=== PATIENT | female | born 1955 | race Caucasian/White ===

== ENCOUNTER → 2024-08-12 | Outpatient (CLI) | payer OTHER, MEDICARE, SELFPAY ==
--- NOTE | 2024-08-12 09:47 | XR_ITS ---
Examination: Abdomen AP single view Technique: AP portable supine abdomen, single view Exam date and time: August 12, 2024 1058 hrs. Indications: Abdominal pain and bloating distention beginning 2 weeks ago. Findings: Moderate air and stool throughout the colon No obstruction No free air Lumbar fusion lower 2 lumbar levels Impression: Moderate air and stool throughout the colon
[2024-08-12 11:03] LABS: Collection Type, Urine Clean Catch
[2024-08-12 11:30] LABS: Basophils # (Auto) 0.1 Thou/mm3 (0.0-0.2); Basophils % (Auto) 1 % (0-2.5); Eosinophils # (Auto) 0.1 Thou/mm3 (0.0-0.5); Eosinophils % (Auto) 1 % (0-10); Immature Granulocytes % (Auto) 0 % (0-0); Immature Granulocytes Auto 0.01 Thou/mm3 (0.00-0.00); Lymphocytes # (Auto) 2.2 Thou/mm3 (1.0-4.8); Lymphocytes % (Auto) 36 % (10-50); Mean Corpuscular HGB Conc 34.1 g/dl (31.0-37.0); Mean Corpuscular Hemoglobin 31.3 pg (25.0-35.0); Mean Corpuscular Volume 92 fL (80-100); Monocytes # (Auto) 0.6 Thou/mm3 (0.0-0.8); Monocytes % (Auto) 10 % (0-12); Neutrophils # (Auto) 3.2 Thou/mm3 (1.8-7.7); Neutrophils % (Auto) 52 % (37-80); Nucleated Red Blood Cell % 0 /100 WBC (0); Platelet Count 303 Thou/mm3 (140-440); Red Blood Count 4.48 Miln/mm3 (4.00-5.20); White Blood Count 6.1 Thou/mm3 (3.6-11.0)
[2024-08-12 11:35] LABS: Bilirubin,Urine Negative (Negative); Blood,Urine Negative (Negative); Clarity,Urine Clear (Clear/Hazy); Color,Urine Lt-Yellow (Lt Yel-Yel); Glucose, Urine Negative (Negative); Ketones,Urine Negative (Negative); Leukocyte Esterase,Urine Negative (Negative); Nitrite,Urine Negative (Negative); PH,Urine 6.5 (5.0-7.0); Protein,Urine Negative (Neg - Trace); RBC,Urine 2 /hpf (0-3); Specific Gravity,Urine 1.014 (1.001-1.035); Squamous Epithelial Cell,Urine < 1 /hpf (0-5); Urobilinogen,Urine Negative mg/dL (0.0-1.0); WBC,Urine < 1 /hpf (0-5)
[2024-08-12 11:51] LABS: Alanine Aminotransferase 16 U/L (10-49); Albumin, Serum 4.9 gm/dL (3.4-4.8); Albumin/Globulin Ratio 2.3 (1.2-2.2); Alkaline Phosphatase 68 U/L (46-116); Amylase 107 U/L (30-118); Anion Gap 4 (7-16); Aspartate Amino Transferase 23 U/L (0-34); BUN/Creatinine Ratio 14 Ratio (12-20); Bilirubin,Total 0.4 mg/dL (0.3-1.2); Blood Urea Nitrogen 11 mg/dL (9-23); Chloride 106 mMol/L (98-107); Creatinine (Component) 0.8 mg/dL (0.6-1.3); Globulin 2.1 gm/dL (2.3-3.5); Glucose 97 mg/dL (74-106); Lipase 107 U/L (12-53); Osmolality,Calculated 273 (275-295); Potassium 4.7 mMol/L (3.4-5.1); Sodium 137 mMol/L (136-145); eGFR > 60 See Note
== END | disposition home or self-care (01) ==
LOC: COPL 09:40
PROVIDERS: PCP Family Medicine; Referring Provider Specialist; Visit Provider Radiology Diagnostic Radiology
DX: K59.00 Constipation, unspecified (principal); R14.0 Abdominal distension (gaseous); R10.32 Left lower quadrant pain; R10.31 Right lower quadrant pain; R10.12 Left upper quadrant pain
CPT/HCPCS: 36415; 74018; 80053; 81001; 82150; 83690; 85025

== ENCOUNTER 2024-08-29 14:03 | Outpatient (RCR) | payer OTHER, MEDICARE, SELFPAY ==
--- NOTE | 2024-08-29 14:00 | XR_ITS ---
Examination: COCO, hepatobiliary radioisotope scan Gallbladder ejection fraction study. Date and time of exam: August 29, 2024 1406 hours INDICATIONS: Abdominal pain in the right upper abdomen constipation 4 days acid reflux heartburn Technique: 5.5 mCi of 99M Hepatolite administered. Serial imaging then obtained from immediate through 60 minutes. 1.0 mcg selective catheter Kinevac administered for gallbladder ejection fraction study. Findings: Radioisotope activity within the liver is reasonably homogenous. Gallbladder, common bile duct small bowel activity noted Impression: Gallbladder activity Normal gallbladder ejection fraction 79%
== END 2024-09-03 23:59 | disposition home or self-care (01) ==
LOC: SNUC 14:03
PROVIDERS: PCP Specialist; Referring Provider Specialist; Visit Provider Specialist
DX: R10.9 Unspecified abdominal pain (principal)
CPT/HCPCS: 78227; A9537; J2805

== ENCOUNTER 2024-09-09 11:49 | Emergency (ER) | payer OTHER, MEDICARE, SELFPAY ==
[2024-09-09 12:14] VITALS: BP 145/90; PULSE 100; RESP 19; TEMP 37; O2SAT 95; BMI 16.5
--- NOTE | 2024-09-09 12:20 | XR_ITS ---
Examination: PA lateral chest 2 views TECHNIQUE: Upright PA lateral chest 2 views Exam date and time: September 09, 2024 1245 hours INDICATIONS: Onset chest pain today. FINDINGS: Normal heart size Significant hyperexpansion No pneumonia or pulmonary edema Moderate osteopenia IMPRESSION: COPD No pneumonia or pulmonary edema
--- NOTE | 2024-09-09 12:20 | PD.EDRME ---
Rapid Medical Screening Exam RME Arrival date/time: 09/09/24 11:49 68-year-old female presents to the emergency department today complaints of abdominal pain and palpitations patient reports that she has been on a bowel regimen and is seeing Dr. Singer patient reports that constipation persist as well as palpitations Chief Complaint: General Adult/Misc Complain Vital signs: Vital Signs Temperature 98.6 F 09/09/24 12:14 Pulse Rate 100 09/09/24 12:14 Respiratory Rate 19 09/09/24 12:14 Blood Pressure 145/90 H 09/09/24 12:14 Pulse Oximetry (%) 95 09/09/24 12:14 Oxygen Delivery Method Room Air 09/09/24 12:14
[2024-09-09 12:57] LABS: Basophils # (Auto) 0.1 Thou/mm3 (0.0-0.2); Basophils % (Auto) 1 % (0-2.5); Eosinophils % (Auto) 1 % (0-10); Hematocrit 41.3 % (36.0-46.0); Hemoglobin 13.9 g/dL (12.0-16.0); Immature Granulocytes % (Auto) 0 % (0-0); Lymphocytes # (Auto) 2.1 Thou/mm3 (1.0-4.8); Lymphocytes % (Auto) 36 % (10-50); Mean Corpuscular HGB Conc 33.7 g/dl (31.0-37.0); Mean Corpuscular Hemoglobin 30.9 pg (25.0-35.0); Mean Corpuscular Volume 92 fL (80-100); Monocytes # (Auto) 0.5 Thou/mm3 (0.0-0.8); Monocytes % (Auto) 8 % (0-12); Neutrophils # (Auto) 3.2 Thou/mm3 (1.8-7.7); Neutrophils % (Auto) 55 % (37-80); Nucleated Red Blood Cell % 0 /100 WBC (0); Platelet Count 261 Thou/mm3 (140-440); RDW Standard Deviation 42.4 fL (36.4-46.3); White Blood Count 5.9 Thou/mm3 (3.6-11.0)
[2024-09-09 13:20] LABS: Alanine Aminotransferase 13 U/L (10-49); Albumin/Globulin Ratio 2.3 (1.2-2.2); Alkaline Phosphatase 67 U/L (46-116); Anion Gap 6 (7-16); Aspartate Amino Transferase 22 U/L (0-34); BUN/Creatinine Ratio 9 Ratio (12-20); Bilirubin,Total 0.5 mg/dL (0.3-1.2); Blood Urea Nitrogen 6 mg/dL (9-23); Calcium 9.9 mg/dL (8.3-10.6); Calcium (Corrected) 9.9 mg/dL (8.5-10.1); Carbon Dioxide 26.6 mMol/L (20.0-31.0); Chloride 104 mMol/L (98-107); Creatinine (Component) 0.7 mg/dL (0.6-1.3); Estimated Creatinine Clearance 50.9 mL/min (>60); Globulin 2.2 gm/dL (2.3-3.5); Glucose 92 mg/dL (74-106); Lipase 78 U/L (12-53); Magnesium 2.1 mg/dL (1.6-2.6); Osmolality,Calculated 271 (275-295); Sodium 137 mMol/L (136-145); Total Protein 7.2 gm/dL (5.7-8.2); Troponin I < 0.002 ng/mL (0.0-0.045); eGFR > 60 See Note
--- NOTE | 2024-09-09 15:11 | PC.NURSE ---
PT LEFT THE ER ROOM AT THIS TIME.
== END 2024-09-09 15:12 | disposition left against medical advice (07) ==
LOC: SERX 12:52
PROVIDERS: Nurse Practitioner Primary Care; Emergency Provider Emergency Medicine; PCP Family Medicine
DX: R10.9 Unspecified abdominal pain (principal); R00.2 Palpitations; Z53.29 Procedure and treatment not carried out because of patient's decision for other reasons
CPT/HCPCS: 36415; 71046; 80053; 80307; 83690; 83735; 83880; 84484; 85025; 93005; 99283

== ENCOUNTER → 2024-09-09 | Outpatient (CLI) | payer OTHER, MEDICARE, SELFPAY ==
--- NOTE | 2024-09-09 10:55 | XR_ITS ---
Examination: Abdomen AP single view Technique: AP portable supine abdomen, single view Exam date and time: September 09, 2024 1118 hours INDICATIONS: Constipation 4 weeks with epigastric pain lower abdominal pain FINDINGS: Moderate stool throughout the colon No obstruction Heavy vascular calcification Transpedicular lumbar fusion lower lumbar spine with laminectomies IMPRESSION: Moderate stool throughout the colon
== END | disposition home or self-care (01) ==
LOC: CDIM 10:32
PROVIDERS: PCP Family Medicine; Referring Provider Specialist; Visit Provider Specialist
DX: K59.00 Constipation, unspecified (principal)
CPT/HCPCS: 74018

== ENCOUNTER → 2024-09-10 | Outpatient (CLI) | payer OTHER, MEDICARE, SELFPAY ==
[2024-09-10 11:46] LABS: Collection Type, Urine Clean Catch
[2024-09-10 12:04] LABS: Basophils % (Auto) 1 % (0-2.5); Eosinophils % (Auto) 0 % (0-10); Hematocrit 40.6 % (36.0-46.0); Immature Granulocytes % (Auto) 0 % (0-0); Immature Granulocytes Auto 0.01 Thou/mm3 (0.00-0.00); Lymphocytes # (Auto) 1.5 Thou/mm3 (1.0-4.8); Lymphocytes % (Auto) 26 % (10-50); Mean Corpuscular HGB Conc 34.5 g/dl (31.0-37.0); Mean Corpuscular Hemoglobin 30.9 pg (25.0-35.0); Mean Corpuscular Volume 90 fL (80-100); Monocytes # (Auto) 0.5 Thou/mm3 (0.0-0.8); Monocytes % (Auto) 9 % (0-12); Neutrophils # (Auto) 3.8 Thou/mm3 (1.8-7.7); Neutrophils % (Auto) 64 % (37-80); Nucleated Red Blood Cell % 0 /100 WBC (0); Platelet Count 280 Thou/mm3 (140-440); RDW Standard Deviation 41.6 fL (36.4-46.3); Red Blood Count 4.53 Miln/mm3 (4.00-5.20); White Blood Count 5.9 Thou/mm3 (3.6-11.0)
[2024-09-10 12:06] LABS: Bilirubin,Urine Negative (Negative); Blood,Urine Negative (Negative); Clarity,Urine Clear (Clear/Hazy); Color,Urine Yellow (Lt Yel-Yel); Glucose, Urine Negative (Negative); Ketones,Urine Negative (Negative); Leukocyte Esterase,Urine Negative (Negative); Nitrite,Urine Negative (Negative); PH,Urine 6.5 (5.0-7.0); Protein,Urine Negative (Neg - Trace); RBC,Urine 2 /hpf (0-3); Specific Gravity,Urine 1.009 (1.001-1.035); Squamous Epithelial Cell,Urine < 1 /hpf (0-5); Urobilinogen,Urine Negative mg/dL (0.0-1.0); WBC,Urine < 1 /hpf (0-5)
[2024-09-10 14:20] LABS: Alanine Aminotransferase 16 U/L (10-49); Albumin, Serum 4.7 gm/dL (3.4-4.8); Alkaline Phosphatase 66 U/L (46-116); Anion Gap 6 (7-16); Aspartate Amino Transferase 31 U/L (0-34); BUN/Creatinine Ratio 11 Ratio (12-20); Bilirubin,Total 0.4 mg/dL (0.3-1.2); Blood Urea Nitrogen 9 mg/dL (9-23); Calcium 10.3 mg/dL (8.3-10.6); Calcium (Corrected) 10.3 mg/dL (8.5-10.1); Carbon Dioxide 26.4 mMol/L (20.0-31.0); Chloride 106 mMol/L (98-107); Creatinine (Component) 0.8 mg/dL (0.6-1.3); Globulin 2.3 gm/dL (2.3-3.5); Glucose 97 mg/dL (74-106); Lipase 77 U/L (12-53); Osmolality,Calculated 274 (275-295); Potassium 4.4 mMol/L (3.4-5.1); Sodium 138 mMol/L (136-145); eGFR > 60 See Note
[2024-09-10 14:33] LABS: Amylase 87 U/L (30-118)
== END | disposition home or self-care (01) ==
LOC: COPL 11:30
PROVIDERS: PCP Family Medicine; Referring Provider Specialist; Visit Provider Specialist
DX: R10.9 Unspecified abdominal pain (principal)
CPT/HCPCS: 36415; 80053; 81001; 82150; 83690; 85025

== ENCOUNTER 2024-09-13 08:38 | Emergency (ER) | payer OTHER, MEDICARE, SELFPAY ==
[2024-09-13 09:06] VITALS: BP 119/78; PULSE 76; RESP 19; TEMP 36.7; O2SAT 100; BMI 16.5
--- NOTE | 2024-09-13 09:24 | XR_ITS ---
Examination: Abdomen AP single view Technique: AP portable supine abdomen, single view Exam date and time: September 13, 2024 1013 hrs. Comparison September 09, 2024 Indications: Constipation beginning one week ago. Findings: Moderately air distended colon No obstruction Abundant stool in the colon is not seen No free air Impression: Moderately air distended colon
--- NOTE | 2024-09-13 09:24 | PD.EDRME ---
Rapid Medical Screening Exam RME Arrival date/time: 09/13/24 08:38 This is a 68-year-old female that per patient is sent by Dr. Singer's office. Patient states that she has had constipation for the last 6 weeks. Patient states that she took milk of magnesium last night and did not help. Patient reports that when she started to try to lay down last night she started feeling like she had palpitations and chest pain. Patient denies nausea vomiting fever. Patient has a history of constipation, anxiety, and reports of recent history with her pancreas. Patient reports history of a in the past and back surgery. Patient is an active smoker I have greeted and performed a focused initial assessment of this patient. Initial appropriate labs ordered at this time. A comprehensive ED assessment and evaluation of the patient and analysis of all test and completion of medical decision making process will be conducted by additional ED provider. Chief Complaint: Abdominal Pain Time Seen by Provider: 09/13/24 09:10 Vital signs: Vital Signs Temperature 98.0 F 09/13/24 09:06 Pulse Rate 76 09/13/24 09:06 Respiratory Rate 19 09/13/24 09:06 Blood Pressure 119/78 09/13/24 09:06 Pulse Oximetry (%) 100 09/13/24 09:06 Oxygen Delivery Method Room Air 09/13/24 09:06
[2024-09-13 10:24] LABS: Basophils # (Auto) 0.1 Thou/mm3 (0.0-0.2); Basophils % (Auto) 1 % (0-2.5); Eosinophils % (Auto) 1 % (0-10); Hematocrit 41.8 % (36.0-46.0); Hemoglobin 14.3 g/dL (12.0-16.0); Immature Granulocytes % (Auto) 0 % (0-0); Immature Granulocytes Auto 0.01 Thou/mm3 (0.00-0.00); Lymphocytes % (Auto) 34 % (10-50); Mean Corpuscular HGB Conc 34.2 g/dl (31.0-37.0); Mean Corpuscular Hemoglobin 31.1 pg (25.0-35.0); Mean Corpuscular Volume 91 fL (80-100); Monocytes # (Auto) 0.6 Thou/mm3 (0.0-0.8); Monocytes % (Auto) 10 % (0-12); Neutrophils # (Auto) 3.1 Thou/mm3 (1.8-7.7); Neutrophils % (Auto) 54 % (37-80); Nucleated Red Blood Cell % 0 /100 WBC (0); Platelet Count 263 Thou/mm3 (140-440); RDW Standard Deviation 41.4 fL (36.4-46.3); White Blood Count 5.7 Thou/mm3 (3.6-11.0)
--- NOTE | 2024-09-13 10:37 | PC.NURSE ---
PT C/O CHEST PAIN WHEN LAYING ON SIDE. PT STATES THAT TOOK BLOOD PRESSURE AND PT NOTICED THAT THE HEART BEAT WERE SPACED APART. PT WAS SENT IN BY DR. GARCÍA. PT STATES THAT DR. GARCÍA SENT HER FOR A CT. PT IS A/O AT THIS TIME. PT C/O PAIN 05/17 TO THE UPPER MIDDLE PORTION OF THE ABD. PT STATES LAST BM WAS 4 DAYS AGO AND HAS BEEN TAKING LAXATIVES. PT AWAITING TO BE SEEN BY .
[2024-09-13 10:41] LABS: B-Type Natriuretic Peptide < 20 pg/mL (0-100)
[2024-09-13 10:44] LABS: Alanine Aminotransferase 17 U/L (10-49); Albumin/Globulin Ratio 2.4 (1.2-2.2); Alkaline Phosphatase 66 U/L (46-116); Anion Gap 5 (7-16); Aspartate Amino Transferase 30 U/L (0-34); BUN/Creatinine Ratio 6 Ratio (12-20); Bilirubin,Total 0.3 mg/dL (0.3-1.2); Blood Urea Nitrogen < 5 mg/dL (9-23); Calcium 9.9 mg/dL (8.3-10.6); Calcium (Corrected) 9.9 mg/dL (8.5-10.1); Carbon Dioxide 27.6 mMol/L (20.0-31.0); Chloride 104 mMol/L (98-107); Creatinine (Component) 0.8 mg/dL (0.6-1.3); Estimated Creatinine Clearance 44.6 mL/min (>60); Globulin 2.1 gm/dL (2.3-3.5); Glucose 103 mg/dL (74-106); Lipase 91 U/L (12-53); Osmolality,Calculated 271 (275-295); Potassium 4.6 mMol/L (3.4-5.1); Sodium 137 mMol/L (136-145); Total Protein 7.1 gm/dL (5.7-8.2); Troponin I < 0.020 ng/mL (0.0-0.045); eGFR > 60 See Note
[2024-09-13 11:00] VITALS: BP 144/78; PULSE 62; RESP 13; TEMP 36.7; O2SAT 97
--- NOTE | 2024-09-13 11:19 | XR_ITS ---
Examination: CT abdomen with intravenous contrast CT pelvis with intravenous contrast 2-D coronal reconstructions 2-D sagittal reconstructions Date and time of exam:September 13, 2024 1219 hrs. Indications: Abdominal pain and constipation beginning 4 weeks ago, history kidney stones Comparison: August 06, 2024. CTDI: vol (mGy) 4.26 DLP: (mGycm) 193 Technique: Multiple axial sections of the abdomen and pelvis have been obtained. 64 slice high-resolution scanner used. 3 mm axial sections have been obtained, post intravenous injection 60 cc [id number] 2-D sagittal, coronal reconstructions obtained. Low dose protocols were performed. One or more of the following dose reduction techniques were used; automated exposure control, adjustment of the mA and/or KV according to patient size, use of iterative reconstruction technique. Findings: Nodule with calcifications left lower lobe again noted Mucosal prominence in the stomach Diffuse fatty infiltration throughout the liver, no biliary tract dilatation Contracted gallbladder Spleen is not enlarged No pancreatic mass No hydronephrosis renal or ureteral calculi Heavy abdominal aortic calcification no aneurysmal dilatation No pericecal inflammatory change No diverticulitis or bowel obstruction Venous channels are prominent about the uterus No pelvic mass Bladder intact Lumbar stabilization L4-L5 Impression: Gastritis pattern No renal or ureteral calculi, no hydronephrosis No CT findings of appendicitis bowel obstruction or diverticulitis Moderate stool in the rectosigmoid
--- NOTE | 2024-09-13 11:20 | PD.EDABDPN ---
ED Abdominal Pain RME/HPI General Chief Complaint: Abdominal Pain Stated complaint: ABD PAIN, CONSTIPATION, CHEST PRESSURE Time seen by provider: 09/13/24 09:10 Arrival date/time: 09/13/24 08:38 RME / HPI RME / HPI narrative: 68-year-old female patient was sent to us by Dr. Singer, for evaluation regarding concern with constipation. According to the patient has been having constipation for the last 6 weeks, was already given GoLytely, with no relief, patient took milk of magnesia last night and did not help. Patient also complained that when she started to lay down, last night, she started feeling like she had a palpitations and chest pain. Patient denies any vomiting but complains of nausea. Patient denies any fever. Patient is currently taking alprazolam, for significant anxiety problem. Denies any other complaints no medications taken prior travel. Related Data Home Medications ?Medication ?Instructions ?Recorded ?Confirmed ibuprofen 800 mg tablet 800 mg PO BID 03/23/23 03/23/23 tizanidine 4 mg tablet 4 mg PO Q6HR PRN Muscle Spasm 03/23/23 03/23/23 Previous Rx's ?Medication ?Instructions ?Recorded amoxicillin 500 mg capsule 500 mg PO BID #20 caps 09/15/23 ondansetron 4 mg disintegrating 4 mg PO Q8H #14 tabs 09/25/23 tablet meclizine 50 mg tablet 50 mg PO BID #14 tabs 01/27/24 pantoprazole 40 mg tablet,delayed 40 mg PO QDAY #30 tabs 09/13/24 release (Protonix) peg 3350-electrolytes 236 240 ml PO Q10M #4,000 mL 09/13/24 gram-22.74 gram-6.74 gram-5.86 gram solution (Golytely) Allergies Allergy/AdvReac Type Severity Reaction Status Date / Time Sulfa (Sulfonamide AdvReac Severe MIGRAINES Verified 09/09/24 11:52 Antibiotics) Review of Systems Review of Systems Narrative Review of Systems: Review of system reviewed and within normal limits except mentioned in HPI ED Exam Narrative Physical exam: VITAL SIGNS: Reviewed. GENERAL APPEARANCE: Alert and interactive, follows commands, no acute distress, anxious HEAD AND FACE: Non-traumatic. ENT: PERRL, pink conjunctivitis, eyelid no trauma, Mucous membrane moist. NECK: Supple, nontender, no nuchal rigidity. CHEST: No tenderness, no crepitus, no paradoxical movement, no retractions. LUNGS: Clear, well ventilated, symmetric, no rales, no wheezing, no ronchi, no stridor, good breath sounds bilaterally. HEART: Regular rate, regular rhythm, no murmur, no gallops. ABDOMEN: Soft, positive bowel sounds, nondistended, no guarding, nontender, no rebound, no masses, RECTAL: Deferred. GENITAL: Deferred. NEUROLOGICAL: Gross motor function intact sensory function intact, Appropriate for age. MUSCULOSKELETAL: low back nontender, full range of motion. EXTREMITIES: Nontender, full range of motion. SKIN: Color pink, dry, no rash, no lacerations, no abrasions, no contusions. LYMPHATICS: Deferred. Course Quality Measures none Orders Category Date Time Status CT Screening NOW Care 09/13/24 11:19 Active EKG (ED ONLY) *Do not use* NOW Care 09/13/24 09:23 Completed Enema Administration ONCE Care 09/13/24 13:[address] abdomen pelvis w con Stat Exams 09/13/24 11:19 Completed EKG (ED Only) Stat Exams 09/13/24 09:22 Ordered KUB [XR abdomen 1V] Stat Exams 09/13/24 09:24 Completed BNP [B-Type Natriuretic Peptide] Stat Lab 09/13/24 10:10 Completed CBC Stat Lab 09/13/24 10:10 Completed Comprehensive Metabolic Panel Stat Lab 09/13/24 10:10 Completed Lipase Stat Lab 09/13/24 10:10 Completed Troponin I Stat Lab 09/13/24 10:10 Completed Magnesium Citrate Liqd [Citrate of Magnesia Liqd] Med 09/13/24 11:19 Discontinued 300 ml PO X1 ONE Vital Signs Vital signs: Vital Signs Temperature 98.0 F 09/13/24 09:06 Pulse Rate 76 09/13/24 09:06 Respiratory Rate 19 09/13/24 09:06 Blood Pressure 119/78 09/13/24 09:06 Pulse Oximetry (%) 100 09/13/24 09:06 Oxygen Delivery Method Room Air 09/13/24 09:06 Abdominal Pain MDM MDM Narrative MDM Narrative:: 68-year-old female patient was sent to us by Dr. Singer, for evaluation regarding concern with constipation. According to the patient has been having constipation for the last 6 weeks, was already given GoLytely, with no relief, patient took milk of magnesia last night and did not help. Patient also complained that when she started to lay down, last night, she started feeling like she had a palpitations and chest pain. Patient denies any vomiting but complains of nausea. Patient denies any fever. Patient is currently taking alprazolam, for significant anxiety problem. Denies any other complaints no medications taken prior travel. Patient EKG showed occasional episodes of bigeminy, cardiac workup all came back normal laboratory workup all came back normal CT scan of the abdomen also came back unremarkable except for constipation. I called Dr. Delgado, patient's pharmaceutical representative, discussed the case, and told me that patient can follow-up in the clinic this coming Sunday. I called Dr. Singer also patient's GI specialist, and told me that patient can be discharged home on GoLytely and follow-up in the clinic this coming Sunday. Patient data External records reviewed:: None Clinical information provided by:: patient Social determinants that could affect healthcare access:: none Patient has the following chronic illnesses:: Anxiety , chronic constipation How is presenting disease/condition affected by chronic disease/condition?: exacerbated by Evaluation data The following diagnostics were reviewed and interpreted by me:: lab results, radiology exam(s) and EKG tracing(s) Lab and/or radiology exams considered but not ordered:: None Interpretation Summary: Laboratory workup all came back unremarkable. CT scan of the abdomen and pelvis showed no acute pathology except for rectosigmoid constipation. Patient EKG showed sinus rhythm, with episodes of bigeminy otherwise unremarkable. Cardiac workup all came back normal. Medications / Prescriptions Medications or Prescriptions considered but not ordered:: None Medication administrations:: Medication Administration History Discontinued Medications Magnesium Citrate (Magnesium Citrate 300 Ml Btl) 300 ml PO X1 ONE Stop: 09/13/24 11:20 Mag citrate and Fleet enema with good relief of symptoms Consultations Consultation(s) initiated? (list below): No Diagnosis Differential diagnosis abdominal pain: abdominal pain, constipation and pancreatitis Most likely diagnosis given after review of the tests above:: Constipation, anxiety, Admission Indicated Admission indicated?: not indicated Admission Request Was there a request for admission?: No Disposition Plan Disposition Plan: Discharge Discharge Attestation Discharge Attestation: The patient was given an opportunity to ask questions and understood the discharge instructions. Discharge instructions specifically effects, indications for sooner follow up or return to the emergency department, and the expected course of current diagnosis. Patient condition: Stable Discharge Plan Plan Patient Disposition: HOME (Self Care) Disposition Comment: stable Prescriptions/Referrals Prescriptions/Med Rec: New peg 3350-electrolytes [Golytely] 236-22.74-6.74 -5.86 gram recon soln 240 ml PO Q10M Qty: 4000 0RF Rx Instructions: until fecal effluent is clear pantoprazole [Protonix] 40 mg tablet,delayed release (DR/EC) 40 mg PO QDAY Qty: 30 0RF No Action amoxicillin 500 mg capsule 500 mg PO BID Qty: 20 0RF meclizine 50 mg tablet 50 mg PO BID Qty: 14 0RF tizanidine 4 mg tablet 4 mg PO Q6HR PRN (Reason: Muscle Spasm) Patient Comments: TAKE ONE TABLET BY MOUTH EVERY EVENING NEEDED FOR MUSCLE SPASMS ibuprofen 800 mg tablet 800 mg PO BID ondansetron 4 mg tablet,disintegrating 4 mg PO Q8H Qty: 14 0RF Referrals: Mark Ty MD [Primary Care Provider] - In 1 week Problem List Clinical Impression: Abdominal pain, Constipation, Anxiety Patient/Caregiver Discharge Instructions Discharge Activity: activity as tolerated Education Materials: ED Constipation (Adult) Additional Instructions: Thank you for the opportunity for serving you today. You are stable for discharged . You are advised to: Follow-up with Dr. Singer, this coming Sunday, please call ahead for appointment, follow-up also with Dr. Delgado, this Sunday, please call ahead for appointment Return to ED for worsening of symptoms Increase oral fluids Take medication as prescribed Print Language: Arabic Stand Alone Forms: Spring Award Info., Patient Portal Info Letter PA/PROGRAM INSTRUCTOR Supervising Physician PA/DWIGHT Supervising Physician: MD Jaylen
[2024-09-13 13:27] VITALS: BP 122/60; PULSE 72; RESP 18; TEMP 36.7; O2SAT 98
== END 2024-09-13 15:00 | disposition home or self-care (01) ==
PROVIDERS: Nurse Practitioner Family; Emergency Provider Emergency Medicine; PCP Family Medicine
DX: K59.00 Constipation, unspecified (principal); F41.9 Anxiety disorder, unspecified
CPT/HCPCS: 36415; 74018; 74177; 80053; 83690; 83880; 84484; 85025; 93005; 99285; A4649; Q9967

== ENCOUNTER 2024-10-05 12:24 | Emergency (ER) | payer OTHER, MEDICARE, SELFPAY ==
[2024-10-05 12:25] VITALS: BMI 16.5
[2024-10-05 13:13] VITALS: BP 134/81; PULSE 109; RESP 18; TEMP 36.6; O2SAT 97
--- NOTE | 2024-10-05 13:34 | EKG_ITS ---
[facility] Test Date: 2024-10-05 Pat Name: JOSE RAUL CHOW Department: Room: - Gender: Female Concrete Paver: : 1955 Requested By: Jaswinder Ching ([facility]) Order Number: [id number] Reading MD: Jaswinder Ching ([facility]) Measurements Intervals [place] Rate: 93 P: 84 DE: 134 QRS: 97 QRSD: 86 T: 23 QT: 338 QTc: 421 Interpretive Statements SINUS RHYTHM POSSIBLE RIGHT ATRIAL ENLARGEMENT [0.25mV P WAVE] POSSIBLE LEFT ATRIAL ENLARGEMENT [-0.1mV P WAVE IN V1/V2] BORDERLINE RIGHT AXIS DEVIATION [QRS AXIS > 90] Compared to ECG 03/16/2024 10:22:25 No significant changes /[id number]/[email or web address]/[id number].pdf
--- NOTE | 2024-10-05 13:34 | PD.EDRME ---
Rapid Medical Screening Exam RME Arrival date/time: 10/05/24 12:24 69-year-old female presents emergency department complaining of irregular heart rate and lower abdominal pain. Chief Complaint: Arrhythmia/Palpitations Time Seen by Provider: 10/05/24 13:05 Vital signs: Vital Signs Temperature 97.9 F 10/05/24 13:13 Pulse Rate 109 H 10/05/24 13:13 Respiratory Rate 18 10/05/24 13:13 Blood Pressure 134/81 H 10/05/24 13:13 Pulse Oximetry (%) 97 10/05/24 13:13 Oxygen Delivery Method Room Air 10/05/24 13:13 Vital signs reviewed by provider: Yes
--- NOTE | 2024-10-05 13:45 | XR_ITS ---
Examination: Abdomen AP single view Technique: AP portable supine abdomen, single view Exam date and time: October 05, 2024 1348 hrs. Indications: Intermittent constipation one month. Findings: Mild to moderate air and stool throughout the colon No obstruction No free air Heavy vascular calcification Transpedicular lower lumbar fusion Impression: Mild to moderate air and stool throughout the colon, no obstruction
[2024-10-05 14:09] LABS: Collection Type, Urine Clean Catch; Squamous Epithelial Cell,Urine 0 /hpf (0-5)
[2024-10-05 14:13] LABS: Basophils # (Auto) 0.1 Thou/mm3 (0.0-0.2); Basophils % (Auto) 1 % (0-2.5); Eosinophils # (Auto) 0.1 Thou/mm3 (0.0-0.5); Eosinophils % (Auto) 1 % (0-10); Hemoglobin 14.4 g/dL (12.0-16.0); Immature Granulocytes % (Auto) 0 % (0-0); Immature Granulocytes Auto 0.02 Thou/mm3 (0.00-0.00); Lymphocytes # (Auto) 2.5 Thou/mm3 (1.0-4.8); Lymphocytes % (Auto) 34 % (10-50); Mean Corpuscular HGB Conc 35.1 g/dl (31.0-37.0); Mean Corpuscular Hemoglobin 31.4 pg (25.0-35.0); Mean Corpuscular Volume 90 fL (80-100); Monocytes # (Auto) 0.6 Thou/mm3 (0.0-0.8); Monocytes % (Auto) 9 % (0-12); Neutrophils % (Auto) 55 % (37-80); Nucleated Red Blood Cell % 0 /100 WBC (0); Platelet Count 272 Thou/mm3 (140-440); RDW Standard Deviation 41.7 fL (36.4-46.3); Red Blood Count 4.58 Miln/mm3 (4.00-5.20); White Blood Count 7.2 Thou/mm3 (3.6-11.0)
[2024-10-05 14:19] LABS: Bilirubin,Urine Negative (Negative); Blood,Urine Negative (Negative); Clarity,Urine Clear (Clear/Hazy); Color,Urine Colorless (Lt Yel-Yel); Culture Indicated,Urine Not Indicated; Glucose, Urine Negative (Negative); Ketones,Urine Negative (Negative); Leukocyte Esterase,Urine Negative (Negative); Nitrite,Urine Negative (Negative); PH,Urine 6.5 (5.0-7.0); Protein,Urine Negative (Neg - Trace); RBC,Urine 1 /hpf (0-3); Specific Gravity,Urine 1.006 (1.001-1.035); Urobilinogen,Urine Negative mg/dL (0.0-1.0); WBC,Urine 1 /hpf (0-5)
[2024-10-05 14:28] LABS: Amphetamine/Methamp Scrn,U Negative (Negative); Barbiturate Screen,Urine Negative (Negative); Benzodiazepines Screen,Urine Negative (Negative); Benzoylecgonine Screen, Ur Negative (Negative); Fentanyl Screen,Urine Negative (Negative); Opiate Screen,Urine Positive (Negative); THC Screen,Urine Negative (Negative)
[2024-10-05 14:37] LABS: Alanine Aminotransferase 18 U/L (10-49); Albumin, Serum 5.2 gm/dL (3.4-4.8); Albumin/Globulin Ratio 2.3 (1.2-2.2); Alkaline Phosphatase 68 U/L (46-116); Anion Gap 6 (7-16); Aspartate Amino Transferase 22 U/L (0-34); BUN/Creatinine Ratio 10 Ratio (12-20); Bilirubin,Total 0.5 mg/dL (0.3-1.2); Blood Urea Nitrogen 8 mg/dL (9-23); Calcium 10.2 mg/dL (8.3-10.6); Calcium (Corrected) 10.2 mg/dL (8.5-10.1); Carbon Dioxide 25.7 mMol/L (20.0-31.0); Chloride 107 mMol/L (98-107); Creatinine (Component) 0.8 mg/dL (0.6-1.3); Estimated Creatinine Clearance 43.5 mL/min (>60); Globulin 2.3 gm/dL (2.3-3.5); Glucose 95 mg/dL (74-106); Lipase 79 U/L (12-53); Osmolality,Calculated 275 (275-295); Potassium 4.2 mMol/L (3.4-5.1); Sodium 139 mMol/L (136-145); Total Protein 7.5 gm/dL (5.7-8.2); eGFR > 60 See Note
--- NOTE | 2024-10-05 15:31 | PD.EDADULT ---
ED General RME/HPI General Chief complaint: Arrhythmia/Palpitations Stated complaint: IRREGULAR HEART WITH LOWER ABD PAIN Time Seen by Provider: 10/05/24 13:05 Arrival date/time: 10/05/24 12:24 CC: Abdominal pain constipation, pain in the low center abdomen, pain is in through my uterus and pushing about my bladder denies nausea vomiting is very anxious. Has seen Dr. Singer for the same complaint 3 times multiple times in the emergency room for the same complaint. RME / HPI RME / HPI narrative: 10/05/24 12:24 69-year-old female presents emergency department complaining of irregular heart rate and lower abdominal pain. Related Data Home Medications ?Medication ?Instructions ?Recorded ?Confirmed ibuprofen 800 mg tablet 800 mg PO BID 03/23/23 03/23/23 tizanidine 4 mg tablet 4 mg PO Q6HR PRN Muscle Spasm 03/23/23 03/23/23 Previous Rx's ?Medication ?Instructions ?Recorded amoxicillin 500 mg capsule 500 mg PO BID #20 caps 09/15/23 ondansetron 4 mg disintegrating 4 mg PO Q8H #14 tabs 09/25/23 tablet meclizine 50 mg tablet 50 mg PO BID #14 tabs 01/27/24 pantoprazole 40 mg tablet,delayed 40 mg PO QDAY #30 tabs 09/13/24 release (Protonix) peg 3350-electrolytes 236 240 ml PO Q10M #4,000 mL 09/13/24 gram-22.74 gram-6.74 gram-5.86 gram solution (Golytely) Allergies Allergy/AdvReac Type Severity Reaction Status Date / Time Sulfa (Sulfonamide AdvReac Severe MIGRAINES Verified 10/05/24 12:26 Antibiotics) Review of Systems Review of Systems Narrative Review of Systems: GEN: No fever, no chills, no weight loss EYES: No discharge, no visual changes, no pain HEENT: No ear pain, no congestion, no sore throat PULM: No shortness of breath, no cough, no congestion CV: No chest pain, no dyspnea on exertion, no palpitations GI: No nausea, no vomiting, no diarrhea, + pain, no constipation : No frequency, no urgency, no dysuria MUSC/SKEL: No joint pain, no back pain SKIN: No rash PSYCH: No hallucinations, no depression HEME/LYMPH: No easy bleeding or bruising tendencies NEURO: No weakness, no headache Past Medical History Past Medical History NEUROLOGIC: Positive Neurological Disorders and Migraine; Negative Seizures CARDIAC: Positive Hypercholesterolemia; Negative Cardiac Disorders or Congestive Heart Failure RESPIRATORY: Negative Chronic Obstructive Pulmonary Disease (COPD) or Asthma GASTROINTESTINAL: Positive Gastrointestinal Disorders, Hepatitis and Gastroesophageal Reflux Disease GENITOURINARY: Positive Genitourinary Disorders; Negative Renal Disease REPRODUCTIVE: Negative Pelvic Inflammatory Disease MUSCULOSKELETAL: Positive Musculoskeletal Disorders and Osteoporosis ENDOCRINE: Negative Endocrine Disorders, Diabetes Mellitus Type 1 or Diabetes Mellitus Type 2 HEMATOLOGIC: Negative Blood Disorders, Anemia or Sickle Cell Disease PSYCHO/SOCIAL: Positive Depression and Anxiety OTHER HISTORY: Positive Chicken Pox; Negative Falls, Blood Transfusions, Anesthesia Reactions, Measles, Mumps or Cancer Family History FAMILY HISTORY: Negative Family Cardiac Disorders Surgical History SURGICAL: Positive Thyroidectomy (PARTIAL) and Tonsillectomy; Negative Cardiac Surgery or Abdominal Surgery Social History SMOKING STATUS: Current every day smoker SUBSTANCE USE: does not use ED Exam Narrative Physical exam: [General: Thin but not emaciated, anxious, but not in any acute distress Head normocephalic HEENT: Within acceptable limits Neck is supple nontender Chest equal chest rise nontender to palpation Respiratory: Clear to auscultation no wheezes crackles or rubs CV: Rate rhythm is regular no murmurs rubs or clicks Abdomen is flat, firm, soft nontender no masses positive bowel sounds all 4 quadrants Back: No CVA tenderness no spinous process tenderness from cervical spine thoracic and lumbar spine Skin: Intact no petechiae rash induration ulceration or crepitus Extremities: Moving all extremity against resistance cap refill less than 2 seconds neurosensory intact Neuro: Awake alert oriented x3 Glascow coma 15 no focal deficits] Course Quality Measures none Orders Category Date Time Status EKG (ED ONLY) *Do not use* NOW Care 10/05/24 13:34 Completed EKG (ED Only) Stat Exams 10/05/24 13:34 Draft XR abdomen 1V Stat Exams 10/05/24 13:45 Completed CBC Stat Lab 10/05/24 14:00 Completed CMP [Comprehensive Metabolic Panel] Stat Lab 10/05/24 14:00 Completed Drug Screen,Urine Stat Lab 10/05/24 13:53 Completed Lipase Stat Lab 10/05/24 14:00 Completed Urinalysis, C/S if Indicated Stat Lab 10/05/24 13:53 Completed Ketorolac Inj [Toradol Inj] Med 10/05/24 13:34 Discontinued 30 mg IM X1 ONE Vital Signs Vital signs: Vital Signs Temperature 97.9 F 10/05/24 13:13 Pulse Rate 109 H 10/05/24 13:13 Respiratory Rate 18 10/05/24 13:13 Blood Pressure 134/81 H 10/05/24 13:13 Pulse Oximetry (%) 97 10/05/24 13:13 Oxygen Delivery Method Room Air 10/05/24 13:13 [facility] Patient data External records reviewed:: [facility] previous records Clinical information provided by:: patient Social determinants that could affect healthcare access:: none Patient has the following chronic illnesses:: Anxiety How is presenting disease/condition affected by chronic disease/condition?: exacerbated by Evaluation data The following diagnostics were reviewed and interpreted by me:: lab results and radiology exam(s) Lab and/or radiology exams considered but not ordered:: CBC shows no acute leukocytosis anemia thrombocytopenia CMP shows no acute electrolyte imbalances renal impairment transaminitis or T. bili elevation Urine is negative X-ray of the abdomen shows normal gas bowel pattern Interpretation Summary: Patient has no acute findings with stable vital signs at this time and comfortable discharging the patient home she can consider [facility] as a prescription from her PCP as she still has residual opioid in her system from her spine surgery. However I suspect the majority of her symptoms are anxiety driven. Medications Medications considered but not ordered:: None Medication administrations:: Medication Administration History Discontinued Medications Ketorolac Tromethamine (Ketorolac Inj 60 Mg/2 Ml Vial) 30 mg IM X1 ONE Stop: 10/05/24 13:35 Last Admin: 10/05/24 14:16 Dose: Not Given Documented By: JARRETT Non-Admin Reason: Patient Refused None Consultations Consultation(s) initiated? (list below): No Diagnosis Differential Diagnosis ED Complaint MDM: Anxiety constipation obstipation Most likely diagnosis given after review of the tests above:: Anxiety constipation Admission Indicated Admission indicated?: not indicated Explain why admission is indicated or not indicated:: Stable for outpatient follow-up Admission Request Was there a request for admission?: No Disposition Plan Disposition Plan: Discharge Discharge Attestation Discharge Attestation: The patient and all family members were given an opportunity to ask questions and understood the discharge instructions. Discharge instructions specifically effects, indications for sooner follow up or return to the emergency department, and the expected course of current diagnosis. Patient condition: Stable Medical Decision Making Differential Diagnosis Differential Diagnosis: Anxiety constipation obstipation Lab Data 10/05/24 14:00 10/05/24 14:00 Labs: Lab Results 10/05/24 10/05/24 Range/Units 13:53 14:00 WBC 7.2 (3.6-11.0) Thou/mm3 RBC 4.58 (4.00-5.20) Miln/mm3 Hgb 14.4 (12.0-16.0) g/dL Hct 41.0 (36.0-46.0) % MCV 90 (80-100) fL MCH 31.4 (25.0-35.0) pg MCHC 35.1 (31.0-37.0) g/dl RDW Std Deviation 41.7 (36.4-46.3) fL Plt Count 272 (140-440) Thou/mm3 Neut % (Auto) 55 (37-80) % Lymph % (Auto) 34 (10-50) % [place] % (Auto) 9 (0-12) % Eos % (Auto) 1 (0-10) % Baso % (Auto) 1 (0-2.5) % Neut # (Auto) 4.0 (1.8-7.7) Thou/mm3 Lymph # (Auto) 2.5 (1.0-4.8) Thou/mm3 [place] # (Auto) 0.6 (0.0-0.8) Thou/mm3 Eos # (Auto) 0.1 (0.0-0.5) Thou/mm3 Baso # (Auto) 0.1 (0.0-0.2) Thou/mm3 Immature Gran # (Auto) 0.02 H (0.00-0.00) Thou/mm3 Absolute Nucleated RBC 0.00 (0.00-0.00) Thou/mm3 Immature Gran % 0 (0-0) % Nucleated RBC % 0 (0) /100 WBC Sodium 139 (136-145) mMol/L Potassium 4.2 (3.4-5.1) mMol/L Chloride 107 (98-107) mMol/L Carbon Dioxide 25.7 (20.0-31.0) mMol/L Anion Gap 6 L (7-16) BUN 8 L (9-23) mg/dL Creatinine 0.8 (0.6-1.3) mg/dL Estim Creat Clear Calc 43.5 L (>60) mL/min eGFR > 60 (60 - ) See Note BUN/Creatinine Ratio 10 L (12-20) Ratio Glucose 95 (74-106) mg/dL Calculated Osmolality 275 (275-295) Calcium 10.2 (8.3-10.6) mg/dL Corrected Calcium 10.2 H (8.5-10.1) mg/dL Total Bilirubin 0.5 (0.3-1.2) mg/dL AST 22 (0-34) U/L ALT 18 (10-49) U/L Alkaline Phosphatase 68 (46-116) U/L Total Protein 7.5 (5.7-8.2) gm/dL Albumin 5.2 H (3.4-4.8) gm/dL Globulin 2.3 (2.3-3.5) gm/dL Albumin/Globulin Ratio 2.3 H (1.2-2.2) Lipase 79 H (12-53) U/L Ur Collection Type Clean Catch Urine Color Colorless A (Lt Yel-Yel) Urine Clarity Clear (Clear/Hazy) Urine pH 6.5 (5.0-7.0) Ur Specific [place] 1.006 (1.001-1.035) Urine Protein Negative (Neg - Trace) Urine Glucose (UA) Negative (Negative) Urine Ketones Negative (Negative) Urine Blood Negative (Negative) Urine Nitrite Negative (Negative) Urine Bilirubin Negative (Negative) Urine Urobilinogen (Auto) Negative (0.0-1.0) mg/dL Ur Leukocyte Esterase Negative (Negative) Urine RBC 1 (0-3) /hpf Urine WBC 1 (0-5) /hpf Ur Squamous Epith Cells 0 (0-5) /hpf Urine Bacteria None (None) Ur Culture Indicated? Not Indicated Urine Opiates Screen Positive A (Negative) Urine Fentanyl Screen Negative (Negative) Ur Barbiturates Screen Negative (Negative) U Amphetamin/Meth Scrn Negative (Negative) U Benzodiazepines Scrn Negative (Negative) U Cocaine Metab Screen Negative (Negative) U Marijuana (THC) Screen Negative (Negative) Discharge Plan Plan Patient Disposition: HOME (Self Care) Patient condition on transfer: Stable Prescriptions/Referrals Prescriptions/Med Rec: No Action amoxicillin 500 mg capsule 500 mg PO BID Qty: 20 0RF meclizine 50 mg tablet 50 mg PO BID Qty: 14 0RF tizanidine 4 mg tablet 4 mg PO Q6HR PRN (Reason: Muscle Spasm) Patient Comments: TAKE ONE TABLET BY MOUTH EVERY EVENING NEEDED FOR MUSCLE SPASMS ibuprofen 800 mg tablet 800 mg PO BID ondansetron 4 mg tablet,disintegrating 4 mg PO Q8H Qty: 14 0RF peg 3350-electrolytes [Golytely] 236-22.74-6.74 -5.86 gram recon soln 240 ml PO Q10M Qty: 4000 0RF Rx Instructions: until fecal effluent is clear pantoprazole [Protonix] 40 mg tablet,delayed release (DR/EC) 40 mg PO QDAY Qty: 30 0RF Referrals: Mark Ty MD [Primary Care Provider] - In 1 week Problem List Clinical Impression: Constipation Patient/Caregiver Discharge Instructions Education Materials: ED Constipation (Adult) Additional Instructions: Consider continue on the [facility] follow-up with Dr. Singer if there is a worsening of symptoms follow-up with your primary care provider. Print Language: Upper Sorbian Stand Alone Forms: Spring Award Info., Patient Portal Info Letter, Work/School Release PA/SENIOR CONTROLS ANALYST Supervising Physician PA/SENIOR CONTROLS ANALYST Supervising Physician: Sukhjinder Cross ENP
== END 2024-10-05 16:02 | disposition home or self-care (01) ==
PROVIDERS: Emergency Provider Emergency Medicine; PCP Family Medicine
DX: K59.00 Constipation, unspecified (principal); R94.31 Abnormal electrocardiogram [ECG] [EKG]; E78.00 Pure hypercholesterolemia, unspecified
CPT/HCPCS: 36415; 74018; 80053; 80307; 81001; 83690; 85025; 93005; 99283

== ENCOUNTER → 2024-11-10 | Outpatient (CLI) | payer OTHER, MEDICARE, SELFPAY ==
[2024-11-10 10:30] LABS: Basophils # (Auto) 0.1 Thou/mm3 (0.0-0.2); Basophils % (Auto) 1 % (0-2.5); Eosinophils # (Auto) 0.1 Thou/mm3 (0.0-0.5); Eosinophils % (Auto) 1 % (0-10); Hematocrit 40.7 % (36.0-46.0); Hemoglobin 13.9 g/dL (12.0-16.0); Immature Granulocytes % (Auto) 0 % (0-0); Lymphocytes % (Auto) 38 % (10-50); Mean Corpuscular HGB Conc 34.2 g/dl (31.0-37.0); Mean Corpuscular Hemoglobin 30.7 pg (25.0-35.0); Mean Corpuscular Volume 90 fL (80-100); Monocytes # (Auto) 0.6 Thou/mm3 (0.0-0.8); Monocytes % (Auto) 12 % (0-12); Neutrophils # (Auto) 2.5 Thou/mm3 (1.8-7.7); Neutrophils % (Auto) 49 % (37-80); Nucleated Red Blood Cell % 0 /100 WBC (0); Platelet Count 275 Thou/mm3 (140-440); RDW Standard Deviation 43.1 fL (36.4-46.3); Red Blood Count 4.53 Miln/mm3 (4.00-5.20); White Blood Count 5.2 Thou/mm3 (3.6-11.0)
[2024-11-10 10:36] LABS: Partial Thromboplastin Time 25.7 Seconds (22.0-36.0)
[2024-11-10 10:47] LABS: Anion Gap 5 (7-16); BUN/Creatinine Ratio 13 Ratio (12-20); Blood Urea Nitrogen 9 mg/dL (9-23); Calcium 9.9 mg/dL (8.3-10.6); Carbon Dioxide 27.7 mMol/L (20.0-31.0); Chloride 108 mMol/L (98-107); Creatinine (Component) 0.7 mg/dL (0.6-1.3); Glucose 96 mg/dL (74-106); Osmolality,Calculated 279 (275-295); Potassium 4.5 mMol/L (3.4-5.1); Sodium 141 mMol/L (136-145); eGFR > 60 See Note
== END | disposition home or self-care (01) ==
LOC: COPL 09:09
PROVIDERS: PCP Family Medicine; Referring Provider Internal Medicine; Visit Provider Internal Medicine
DX: I25.10 Atherosclerotic heart disease of native coronary artery without angina pectoris (principal); I48.91 Unspecified atrial fibrillation
CPT/HCPCS: 36415; 80048; 85025; 85610; 85730

== ENCOUNTER → 2025-01-14 | Outpatient (CLI) | payer OTHER, MEDICARE, SELFPAY ==
[2025-01-14 10:33] LABS: Collection Type, Urine Clean Catch
[2025-01-14 11:49] LABS: Bilirubin,Urine Negative (Negative); Blood,Urine Negative (Negative); Clarity,Urine Clear (Clear/Hazy); Color,Urine Yellow (Lt Yel-Yel); Culture Indicated,Urine Not Indicated; Glucose, Urine Negative (Negative); Ketones,Urine Negative (Negative); Leukocyte Esterase,Urine Negative (Negative); Nitrite,Urine Negative (Negative); PH,Urine 6.5 (5.0-7.0); Protein,Urine Negative (Neg - Trace); RBC,Urine 2 /hpf (0-3); Squamous Epithelial Cell,Urine < 1 /hpf (0-5); WBC,Urine 1 /hpf (0-5)
== END | disposition home or self-care (01) ==
LOC: COPL 10:30 → SLDO 10:31
PROVIDERS: PCP Family Medicine; Referring Provider Family Medicine; Visit Provider Family Medicine
DX: L29.2 Pruritus vulvae (principal)
CPT/HCPCS: 81001

== ENCOUNTER 2025-02-11 18:32 | Emergency (ER) | payer OTHER, MEDICARE, SELFPAY ==
[2025-02-11 18:33] VITALS: BMI 17.4
--- NOTE | 2025-02-11 19:30 | PC.NURSE ---
Pt did not answer when name was called in the lobby and was not found outside.
--- NOTE | 2025-02-11 19:58 | PC.NURSE ---
Pt did not answer when name was called and was not found outside.
== END 2025-02-11 19:58 | disposition left against medical advice (07) ==
LOC: SERX 20:03
PROVIDERS: Emergency Provider Emergency Medicine
DX: Z53.21 Procedure and treatment not carried out due to patient leaving prior to being seen by health care provider (principal)

== ENCOUNTER 2025-02-16 11:25 | Day surgery (SDC) | payer OTHER, MEDICARE, SELFPAY ==
[2025-02-13 12:55] VITALS: BMI 17.4
[2025-02-13 13:35] LABS: Partial Thromboplastin Time 26.2 Seconds (22.0-36.0); Prothrombin Time 11.2 Seconds (9.0-12.2)
[2025-02-13 13:42] LABS: Alanine Aminotransferase 17 U/L (10-49); Albumin, Serum 4.8 gm/dL (3.4-4.8); Alkaline Phosphatase 69 U/L (46-116); Anion Gap 5 (7-16); Aspartate Amino Transferase 29 U/L (0-34); BUN/Creatinine Ratio 13 Ratio (12-20); Bilirubin,Total 0.5 mg/dL (0.3-1.2); Blood Urea Nitrogen 10 mg/dL (9-23); Calcium 9.5 mg/dL (8.3-10.6); Calcium (Corrected) 9.5 mg/dL (8.5-10.1); Carbon Dioxide 27.6 mMol/L (20.0-31.0); Chloride 107 mMol/L (98-107); Creatinine (Component) 0.8 mg/dL (0.6-1.3); Estimated Creatinine Clearance 46.4 mL/min (>60); Globulin 2.4 gm/dL (2.3-3.5); Glucose 113 mg/dL (74-106); Osmolality,Calculated 279 (275-295); Potassium 4.1 mMol/L (3.4-5.1); Sodium 140 mMol/L (136-145); Total Protein 7.2 gm/dL (5.7-8.2); eGFR > 60 See Note
[2025-02-13 13:46] LABS: Basophils # (Auto) 0.1 Thou/mm3 (0.0-0.2); Basophils % (Auto) 1 % (0-2.5); Eosinophils # (Auto) 0.1 Thou/mm3 (0.0-0.5); Eosinophils % (Auto) 1 % (0-10); Hematocrit 40.6 % (36.0-46.0); Hemoglobin 14.2 g/dL (12.0-16.0); Immature Granulocytes % (Auto) 0 % (0-0); Immature Granulocytes Auto 0.02 Thou/mm3 (0.00-0.00); Lymphocytes # (Auto) 2.1 Thou/mm3 (1.0-4.8); Lymphocytes % (Auto) 35 % (10-50); Mean Corpuscular Hemoglobin 31.1 pg (25.0-35.0); Mean Corpuscular Volume 89 fL (80-100); Monocytes # (Auto) 0.6 Thou/mm3 (0.0-0.8); Monocytes % (Auto) 10 % (0-12); Neutrophils # (Auto) 3.1 Thou/mm3 (1.8-7.7); Neutrophils % (Auto) 53 % (37-80); Nucleated Red Blood Cell % 0 /100 WBC (0); Platelet Count 267 Thou/mm3 (140-440); RDW Standard Deviation 42.5 fL (36.4-46.3); Red Blood Count 4.56 Miln/mm3 (4.00-5.20); White Blood Count 5.9 Thou/mm3 (3.6-11.0)
[2025-02-16] VITALS (7 sets, daily range): BP systolic 105–133; BP diastolic 51–89; PULSE 62–79; RESP 16–20; TEMP 36.4–37.2; O2SAT 95–98; BMI 16.2
[2025-02-16] MEDS: RINGERS LACTATED 1000 ML 1,000 ML 100 ML IV (14:55)
--- NOTE | 2025-02-16 15:42 | SUR.PHASEII ---
pt received from OR in recovery bay 2. pt asleep but responds to voice, breathing unlabored on room air. v/s stable. report received from Jodi Guido.
--- NOTE | 2025-02-16 16:18 | SUR.PHASEII ---
pt awake and alert, breathing unlabored on room air. v/s stable. pt able to ambulate to wheelchair with steady gait. d/c instructions given with Krunal in room, all questions answered. pt d/c via wheelchair with all belongings.
== END 2025-02-16 16:18 | disposition home or self-care (01) ==
PROVIDERS: PCP Family Medicine; Referring Provider Surgery; Visit Provider Surgery
PROC: 0DJD8ZZ Inspection of Lower Intestinal Tract, Via Natural or Artificial Opening Endoscopic (ICD-10-PCS; CPT 45378; principal; 2025-02-16 13:00)
DX: Z12.11 Encounter for screening for malignant neoplasm of colon (principal); D12.5 Benign neoplasm of sigmoid colon; K63.5 Polyp of colon; Z86.0100 Personal history of colon polyps, unspecified; F17.210 Nicotine dependence, cigarettes, uncomplicated; Z90.710 Acquired absence of both cervix and uterus; Z90.49 Acquired absence of other specified parts of digestive tract
CPT/HCPCS: 45380; 36415; 80053; 85025; 85610; 85730; A4649; J7120

== ENCOUNTER → 2025-05-25 | Outpatient (CLI) | payer OTHER, MEDICARE, SELFPAY ==
[2025-05-25 15:13] LABS: Collection Type, Urine Clean Catch; Squamous Epithelial Cell,Urine 0 /hpf (0-5); WBC,Urine 0 /hpf (0-5)
[2025-05-25 16:12] LABS: Bilirubin,Urine Negative (Negative); Blood,Urine Negative (Negative); Clarity,Urine Clear (Clear/Hazy); Color,Urine Colorless (Lt Yel-Yel); Glucose, Urine Negative (Negative); Ketones,Urine Negative (Negative); Leukocyte Esterase,Urine Negative (Negative); Nitrite,Urine Negative (Negative); PH,Urine 7.0 (5.0-7.0); Protein,Urine Negative (Neg - Trace); RBC,Urine < 1 /hpf (0-3); Specific Gravity,Urine 1.004 (1.001-1.035); Urobilinogen,Urine Negative mg/dL (0.0-1.0)
== END | disposition home or self-care (01) ==
LOC: SLDO 15:06
PROVIDERS: PCP Family Medicine; Referring Provider Family Medicine; Visit Provider Family Medicine
DX: N30.00 Acute cystitis without hematuria (principal)
CPT/HCPCS: 81001; 87086

== ENCOUNTER 2025-06-21 16:28 | Emergency (ER) | payer OTHER, MEDICARE, SELFPAY ==
[2025-06-21 16:32] VITALS: BP 109/72; PULSE 116; RESP 18; O2SAT 99
--- NOTE | 2025-06-21 16:33 | EKG_ITS ---
[facility] Test Date: 2025-06-21 Pat Name: JOSE RAUL CHOW Department: Room: - Gender: Female Receiving Team Member: : [id number] Requested By: ED Temporary Provider Order Number: [id number] Reading MD: ED Temporary Provider Measurements Intervals [place] Rate: 80 P: 80 IN: 154 QRS: 85 QRSD: 81 T: 71 QT: 375 QTc: 435 Interpretive Statements SINUS RHYTHM WITH FREQUENT VENTRICULAR PREMATURE COMPLEXES ABNORMAL RHYTHM ECG Compared to ECG 10/05/2024 13:48:54 Ventricular premature complex(es) now present /store/S0/[id number]/ecg/[id number].pdf
--- NOTE | 2025-06-21 17:58 | PD.EDRME ---
Rapid Medical Screening Exam RME Arrival date/time: 06/21/25 16:28 Chief Complaint: Arrhythmia/Palpitations Time Seen by Provider: 06/21/25 17:58 Vital signs: Vital Signs Pulse Rate 116 H 06/21/25 16:32 Respiratory Rate 18 06/21/25 16:32 Blood Pressure 109/72 06/21/25 16:32 Pulse Oximetry (%) 99 06/21/25 16:32 Oxygen Delivery Method Room Air 06/21/25 16:32 RME Narrative: 69-year-old female with a past medical history of pancreatitis, calcified aorta presents to the ER complaining of palpitations, epigastric pain which have been nonexertional in nature associated with nausea, shortness of breath, dizziness x 3 days. Denies vomiting. Patient notes she is constipated.
--- NOTE | 2025-06-21 18:00 | XR_ITS ---
Examination: PA chest single view Technique: Upright PA chest single view Date and time: June 21, 2025 1836 hrs., Comparison September 09, 2024 Indications: Epigastric pain today. Findings: COPD with prominent hyperexpansion Normal heart size Prominent central pulmonary arteries. No lobar pneumonia Calcified granuloma in the left lower lobe Reverse right shoulder arthroplasty Impression: COPD with prominent hyperexpansion Pulmonary artery hypertension pattern
[2025-06-21 18:46] LABS: Basophils # (Auto) 0.1 Thou/mm3 (0.0-0.2); Basophils % (Auto) 1 % (0-2.5); Eosinophils # (Auto) 0.1 Thou/mm3 (0.0-0.5); Eosinophils % (Auto) 1 % (0-10); Hematocrit 39.4 % (36.0-46.0); Hemoglobin 13.7 g/dL (12.0-16.0); Immature Granulocytes Auto 0.01 Thou/mm3 (0.00-0.00); Lymphocytes # (Auto) 2.1 Thou/mm3 (1.0-4.8); Lymphocytes % (Auto) 30 % (10-50); Mean Corpuscular HGB Conc 34.8 g/dl (31.0-37.0); Mean Corpuscular Hemoglobin 31.4 pg (25.0-35.0); Mean Corpuscular Volume 90 fL (80-100); Monocytes # (Auto) 0.7 Thou/mm3 (0.0-0.8); Monocytes % (Auto) 10 % (0-12); Neutrophils # (Auto) 4.0 Thou/mm3 (1.8-7.7); Neutrophils % (Auto) 57 % (37-80); Nucleated Red Blood Cell # 0.00 Thou/mm3 (0.00-0.00); Nucleated Red Blood Cell % 0 /100 WBC (0); Platelet Count 252 Thou/mm3 (140-440); RDW Standard Deviation 42.1 fL (36.4-46.3); Red Blood Count 4.36 Miln/mm3 (4.00-5.20); White Blood Count 7.0 Thou/mm3 (3.6-11.0)
[2025-06-21 18:56] LABS: Alanine Aminotransferase 13 U/L (10-49); Albumin, Serum 4.8 gm/dL (3.4-4.8); Albumin/Globulin Ratio 2.4 (1.2-2.2); Alkaline Phosphatase 69 U/L (46-116); Amylase 82 U/L (30-118); Anion Gap 8 (7-16); Aspartate Amino Transferase 28 U/L (0-34); BUN/Creatinine Ratio 10 Ratio (12-20); Bilirubin,Total 0.5 mg/dL (0.3-1.2); Blood Urea Nitrogen 8 mg/dL (9-23); Calcium 10.0 mg/dL (8.3-10.6); Calcium (Corrected) 10.0 mg/dL (8.5-10.1); Carbon Dioxide 26.4 mMol/L (20.0-31.0); Chloride 107 mMol/L (98-107); Creatinine (Component) 0.8 mg/dL (0.6-1.3); Globulin 2.0 gm/dL (2.3-3.5); Glucose 87 mg/dL (74-106); Osmolality,Calculated 278 (275-295); Potassium 3.8 mMol/L (3.4-5.1); Sodium 141 mMol/L (136-145); Total Protein 6.8 gm/dL (5.7-8.2); Troponin I < 0.020 ng/mL (0.0-0.045); eGFR > 60 See Note
[2025-06-21 21:33] LABS: Collection Type, Urine Voided; Squamous Epithelial Cell,Urine 0 /hpf (0-5)
[2025-06-21 21:39] LABS: Bilirubin,Urine Negative (Negative); Blood,Urine Negative (Negative); Clarity,Urine Clear (Clear/Hazy); Color,Urine Lt-Yellow (Lt Yel-Yel); Culture Indicated,Urine Not Indicated; Glucose, Urine Negative (Negative); Ketones,Urine 1+ (Negative); Leukocyte Esterase,Urine Negative (Negative); Nitrite,Urine Negative (Negative); PH,Urine 8.0 (5.0-7.0); Protein,Urine Negative (Neg - Trace); RBC,Urine 1 /hpf (0-3); Specific Gravity,Urine 1.011 (1.001-1.035); Urobilinogen,Urine Negative mg/dL (0.0-1.0); WBC,Urine 2 /hpf (0-5)
--- NOTE | 2025-06-21 21:49 | PD.EDARRY ---
ED Arrhythmia Palp. RME/HPI General Chief Complaint: Arrhythmia/Palpitations Stated Complaint: HR IRREG 86-120 Time Seen by Provider: 06/21/25 17:58 Arrival date/time: 06/21/25 16:28 RME / HPI RME / HPI narrative: 69-year-old female with a past medical history of pancreatitis, calcified aorta presents to the ER complaining of palpitations, epigastric pain which have been nonexertional in nature associated with nausea, shortness of breath, dizziness x 3 days. Denies vomiting. Patient notes she is constipated. -------- Dr. Hill?s Main ED Evaluation: 69yo female presenting with intermittent palpitations x 3 days with associated lower substern/right lower precordial chest pressure-like sensation. No pleuritic component. ?exertional exacerbation. Reports associated mild shortness of breath, lightheadedness, no syncope. No URI, fever, or productive cough. Denies BLE pain or swelling. PMH includes COPD. Patient reports recent high calcium score based on CT scan. PSH noncontributory. No alcohol consumption or illicit drugs. Cardiac Risk Factors: No DM or HTN. + Longstanding tobacci use, familial history of cardiac disease, . Related Data Home Medications ?Medication ?Instructions ?Recorded ?Confirmed lorazepam 0.5 mg tablet 0.5 mg PO QDAY 02/13/25 02/16/25 Held on 02/16/25. Instructions: Resume on 02/17/25. Previous Rx's ?Medication ?Instructions ?Recorded atenolol 25 mg tablet 25 mg PO QDAY #30 tabs 06/22/25 Allergies Allergy/AdvReac Type Severity Reaction Status Date / Time No Known Allergies Allergy Verified 06/21/25 16:31 Review of Systems Review of Systems Systems Reviewed: All systems reviewed, normal except as documented Past Medical History Past Medical History NEUROLOGIC: Positive Neurological Disorders and Migraine; Negative Seizures CARDIAC: Positive Hypercholesterolemia (BORDERLINE); Negative Cardiac Disorders or Congestive Heart Failure RESPIRATORY: Negative Chronic Obstructive Pulmonary Disease (COPD) or Asthma GASTROINTESTINAL: Positive Gastrointestinal Disorders (ABDOMINAL PAIN, CONSTIPATION), Hepatitis and Gastroesophageal Reflux Disease GENITOURINARY: Negative Genitourinary Disorders or Renal Disease REPRODUCTIVE: Negative Pelvic Inflammatory Disease MUSCULOSKELETAL: Positive Musculoskeletal Disorders and Osteoporosis ENDOCRINE: Negative Endocrine Disorders, Diabetes Mellitus Type 1 or Diabetes Mellitus Type 2 HEMATOLOGIC: Negative Blood Disorders, Anemia or Sickle Cell Disease PSYCHO/SOCIAL: Positive Depression and Anxiety OTHER HISTORY: Positive Chicken Pox; Negative Falls, Blood Transfusions, Blood Transfusion Reaction, Anesthesia Reactions, Measles, Mumps or Cancer Family History FAMILY HISTORY: Negative Family Cardiac Disorders Surgical History SURGICAL: Positive Thyroidectomy (PARTIAL) and Tonsillectomy; Negative Cardiac Surgery or Abdominal Surgery Social History SMOKING STATUS: Current every day smoker SUBSTANCE USE: does not use ED Exam Narrative Physical exam: GENERAL APPEARANCE: alert and oriented x 4, well-developed, well-nourished, apprehensive, tearful at times VITALS: All vitals were reviewed and the pulse ox is 99% on room air, which is normal according to my interpretation. HEENT: Normocephalic, atraumatic; pupils equal, round, reactive to light; EOMI; mucous membranes pink, moist; oropharynx clear NECK: Supple, no JVD LUNGS: CTABL; no wheezes, no rales, no rhonchi HEART: Regular rate, regular rhythm; no murmurs; evidence of extra systoles noted ABDOMEN: non distended; normal BS; soft, no tenderness, no guarding, no rebound; no masses, no organomegaly, no hernia EXTREMITIES: atraumatic; no edema; no palpable calf tenderness NEUROLOGIC: awake; alert and oriented x4; cranial nerves II-XII grossly intact; no focal sensory or motor deficits PSYCHIATRIC: appropriate mood and affect SKIN: warm, dry, normal color; no rashes Course Course Course Narrative: CXR is ordered for determining the etiology of palpitations. Quality Measures none Orders Category Date Time Status CT Screening NOW Care 06/21/25 18:01 Active EKG (ED ONLY) *Do not use* NOW Care 06/21/25 16:[address] chest abdomen pelvis w Stat Exams 06/21/25 18:00 Ordered EKG (ED Only) Stat Exams 06/21/25 16:33 Draft XR chest 1V portable Stat Exams 06/21/25 18:00 Completed Amylase Stat Lab 06/21/25 18:16 Completed CBC Stat Lab 06/21/25 18:16 Completed CMP [Comprehensive Metabolic Panel] Stat Lab 06/21/25 18:16 Completed Troponin I Stat Lab 06/21/25 18:16 Completed UA, C/S IF [Urinalysis, C/S if Indicated] Stat Lab 06/21/25 21:21 Completed Vital Signs Vital signs: Vital Signs Pulse Rate 116 H 06/21/25 16:32 Respiratory Rate 18 06/21/25 16:32 Blood Pressure 109/72 06/21/25 16:32 Pulse Oximetry (%) 99 06/21/25 16:32 Oxygen Delivery Method Room Air 06/21/25 16:32 Arrhythmia/Palpitations MDM Narrative MDM Narrative:: Scribe Attestation: 06/21/25 - Gillian Gabriel am scribing for and in the presence of Dr. Hill. 69yo female presenting with intermittent palpitations x 3 days with associated lower substern/right lower precordial chest pressure-like sensation. No pleuritic component. Please see PE findings. Lab markers demonstrate normal CBC. Chemistries demonstrate low normal Potassium 3.8, Mg pending, troponin undetected, UA without evidence of infection. Tox screen positive for opiates only. CXR demonstrates hyperexpansion consistent with COPD. EKG demonstrated ventricular trigeminy. Patient placed on clinical research monitor, underwent basic cardiac work-up, and referred for CTA chest abdomen pelvis. No signs of ischemia, infarction, or pericarditis. CTA without evidence of PE or aotic injury. There is a right calcified thyroid nodule and associated thyromegaly. Will consider low-dose beta blockade to suppress PVCs. After extended period of time, patient is considered stable for discharge. Close cardiac follow-up noted. Dx: symptomatic PVCs, thyroid nodule Patient data External records reviewed:: [facility] previous records (Per chart review, patient was seen here on 10/05/24 for constipation.) Clinical information provided by:: patient Social determinants that could affect healthcare access:: none Patient has the following chronic illnesses:: HLD How is presenting disease/condition affected by chronic disease/condition?: uneffected by Evaluation data The following diagnostics were reviewed and interpreted by me:: lab results, radiology exam(s) and EKG tracing(s) Lab and/or radiology exams considered but not ordered:: none Interpretation Summary: EKG done at 1650, trigeminy, rate of 80, PVCs, no acute pathological ST segment changes, right axis deviation, according to my interpretation. [facility] Report Signed Patient: JOSE RAUL CHOW Med. Record#: [id number] Birthdate: 1955 Age/Sex: 69 / F Location: [facility] Attending Dr: Ordering Physician: Giancarlo Hester PA-C Date of Service: 06/21/25 Procedure(s): XR chest 1V portable Accession Number(s): [id number] cc: Mark Ty MD; Philip Boyle MD; Giancarlo Hester PA-C~ Examination: PA chest single view Technique: Upright PA chest single view Date and time: June 21, 2025 1836 hrs., Comparison September 09, 2024 Indications: Epigastric pain today. Findings: COPD with prominent hyperexpansion Normal heart size Prominent central pulmonary arteries. No lobar pneumonia Calcified granuloma in the left lower lobe Reverse right shoulder arthroplasty Impression: COPD with prominent hyperexpansion Pulmonary artery hypertension pattern Dictated By: Philip Boyle MD Signed By: <Electronically signed by Philip Boyle MD in OV> 06/21/25 1846 [facility] Report Signed Patient: JOSE RAUL CHOW PEARL [employer]to Record#: [id number] Birthdate: 1955 Age/Sex: 69 / F Location: [facility] Attending Dr: Ordering Physician: Jose Marin DO Date of Service: 06/21/25 Procedure(s): CT angio chest abdomen pelvis Accession Number(s): [id number] cc: Mark Ty MD; Jose Marin DO; Philip Boyle MD~ Examination: CTA chest, with intravenous contrast. CTA abdomen, with intravenous contrast. CTA pelvis, with intravenous contrast. 2-D sagittal and coronal reconstructions. 3-D reconstructions. Date and time of exam: June 21, 2025, 10 0 6:00 PM Indications: Chest pain abdominal pain today CTDI vol (mgy) 5.74 DLP (MGycm) 882 Technique: Multiple CTA images, 2.0 mm slice thickness, obtained chest, abdomen, pelvis, with the high-resolution 64 slice scanner. 100 cc Isovue-370 is administered intravenously. Sagittal and coronal 2-D reconstructions are obtained. 3-D reconstructions, angiographic images are obtained. 3-D postprocessing, including vascular maximum intensity projections. Low dose protocols were performed. One or more of the following dose reduction techniques were used; automated exposure control, adjustment of the mA and/or KV according to patient size, use of iterative reconstruction technique. Findings: Enlarged right thyroid lobe with 12 mm calcified right thyroid nodule No thoracic aortic aneurysm dilatation or dissection No pulmonary artery emboli 12 mm calcified granuloma left lower lobe No pneumonia or pulmonary edema No visualized liver or splenic lesion Gallbladder is not diagnostically visualized Heavy abdominal aortic calcification No pancreatic mass No renal or ureteral calculi No bowel obstruction No pericecal inflammatory change Impression: Right thyromegaly No thoracic aortic aneurysm dilatation or dissection Negative for pulmonary artery emboli No lobar pneumonia or pulmonary edema No acute process in the abdomen or pelvis Dictated By: Philip Boyle MD Signed By: <Electronically signed by Philip Boyle MD in OV> 06/21/25 2229 Medications / Prescriptions Medications or Prescriptions considered but not ordered:: N/A Medication administrations:: Atenolol Consultations Consultation(s) initiated? (list below): No Diagnosis Most likely diagnosis given after review of the tests above:: Symptomatic PVCs Admission Indicated Admission indicated?: not indicated Admission Request Was there a request for admission?: No Disposition Plan Disposition Plan: Discharge Discharge Attestation Discharge Attestation: The patient and all family members were given an opportunity to ask questions and understood the discharge instructions. Discharge instructions specifically effects, indications for sooner follow up or return to the emergency department, and the expected course of current diagnosis. Patient condition: Stable Discharge Plan Plan Patient Disposition: HOME (Self Care) Discharge Disposition comment: Stable Prescriptions/Referrals Prescriptions/Med Rec: New atenolol 25 mg tablet 25 mg PO QDAY Qty: 30 1RF No Action lorazepam 0.5 mg tablet 0.5 mg PO QDAY Referrals: Mark Ty MD [Primary Care Provider, Family Practice] - In 1 week Problem List Clinical Impression: Symptomatic PVCs Patient/Caregiver Discharge Instructions Discharge Activity: activity as tolerated Education Materials: PVCs Additional Instructions: Medication as directed. Follow-up with bagging salvager in 1 to 2 weeks. Return if worsening. Print Language: Ukrainian Stand Alone Forms: Spring Award Info., Work/School Release, Patient Portal Info Letter
--- NOTE | 2025-06-21 21:58 | XR_ITS ---
Examination: CTA chest, with intravenous contrast. CTA abdomen, with intravenous contrast. CTA pelvis, with intravenous contrast. 2-D sagittal and coronal reconstructions. 3-D reconstructions. Date and time of exam: June 21, 2025, 10 0 6:00 PM Indications: Chest pain abdominal pain today CTDI vol (mgy) 5.74 DLP (MGycm) 882 Technique: Multiple CTA images, 2.0 mm slice thickness, obtained chest, abdomen, pelvis, with the high-resolution 64 slice scanner. 100 cc Isovue-370 is administered intravenously. Sagittal and coronal 2-D reconstructions are obtained. 3-D reconstructions, angiographic images are obtained. 3-D postprocessing, including vascular maximum intensity projections. Low dose protocols were performed. One or more of the following dose reduction techniques were used; automated exposure control, adjustment of the mA and/or KV according to patient size, use of iterative reconstruction technique. Findings: Enlarged right thyroid lobe with 12 mm calcified right thyroid nodule No thoracic aortic aneurysm dilatation or dissection No pulmonary artery emboli 12 mm calcified granuloma left lower lobe No pneumonia or pulmonary edema No visualized liver or splenic lesion Gallbladder is not diagnostically visualized Heavy abdominal aortic calcification No pancreatic mass No renal or ureteral calculi No bowel obstruction No pericecal inflammatory change Impression: Right thyromegaly No thoracic aortic aneurysm dilatation or dissection Negative for pulmonary artery emboli No lobar pneumonia or pulmonary edema No acute process in the abdomen or pelvis
[2025-06-21 22:29] LABS: Magnesium 2.5 mg/dL (1.6-2.6)
[2025-06-22 00:19] VITALS: BP 118/81; PULSE 88; RESP 20; TEMP 37.1; O2SAT 98
== END 2025-06-22 00:42 | disposition home or self-care (01) ==
PROVIDERS: Physician Assistant; Emergency Provider Emergency Medicine; PCP Family Medicine
DX: I49.3 Ventricular premature depolarization (principal); E04.1 Nontoxic single thyroid nodule; J44.9 Chronic obstructive pulmonary disease, unspecified; K59.00 Constipation, unspecified
CPT/HCPCS: 36415; 71045; 71275; 74174; 80053; 81001; 82150; 83735; 84484; 85025; 93005; 99284; A4649; Q9967